=== PATIENT | female | born 1985 | race Caucasian/White ===

== ENCOUNTER → 2020-07-16 | Outpatient (CLI) | payer MEDICAID ==
[2020-07-16 15:24] LABS: HCT 35.1 % (37.2-46.3); HGB 11.3 g/dL (12.0-15.0); MCH 29.9 pg (27.0-32.0); MCHC 32.2 g/dL (32.0-37.0); MCV 92.9 fL (80.0-97.0); Mean Platelet Volume 10.3 fL (9.5-12.2); Platelet Count 290 X 10*3/uL (140-440); RBC 3.78 X 10*6/uL (4.10-5.20); RDW 13.8 % (11.5-14.5); WBC 9.47 X 10*3/uL (4.50-10.00)
[2020-07-16 16:37] LABS: HIV 2 AB Non-Reactive (Non-Reactive); HIV AB P24 Non-Reactive (Non-Reactive); HIV P24 AG Non-Reactive (Non-Reactive)
[2020-07-16 20:38] LABS: Hepatitis B Surface Antigen Non-Reactive (Non-Reactive)
== END ==
LOC: LABWHC1 09:12
PROVIDERS: ATTEND Obstetrics & Gynecology
DX: Z34.80 Encounter for supervision of other normal pregnancy, unspecified trimester (principal)
CPT/HCPCS: 36415; 85027; 86762; 86780; 86850; 86900; 86901; 87340; 87390

== ENCOUNTER → 2020-08-05 | Outpatient (CLI) | payer MEDICAID | END | disposition home or self-care (01) | LOC: LABWHC1 12:24 | PROVIDERS: ATTEND Obstetrics & Gynecology | DX: O09.90 Supervision of high risk pregnancy, unspecified, unspecified trimester (principal); Z3A.00 Weeks of gestation of pregnancy not specified | CPT/HCPCS: 36415 ==

== ENCOUNTER → 2021-03-25 | Outpatient (CLI) | payer MEDICAID ==
[2021-03-25 19:07] LABS: HCT 42.6 % (37.2-46.3); HGB 13.4 g/dL (12.0-15.0); MCH 28.6 pg (27.0-32.0); MCHC 31.5 g/dL (32.0-37.0); Mean Platelet Volume 9.9 fL (9.5-12.2); Platelet Count 355 X 10*3/uL (140-440); RBC 4.68 X 10*6/uL (4.10-5.20); RDW 12.9 % (11.5-14.5); WBC 9.78 X 10*3/uL (4.50-10.00)
[2021-03-25 22:24] LABS: African American GFR (CKD) 128.3 (60.0-200.0); Albumin 4.4 g/dL (3.8-4.9); Albumin/Globulin Ratio 1.69 (1.60-3.17); Anion Gap 14.9 mmol/L (10.00-18.00); Blood Urea Nitrogen 8.4 mg/dL (9.0-27.0); Calcium 9.1 mg/dL (8.7-10.3); Carbon Dioxide 22.1 mmol/L (20.0-27.5); Globulin 2.6 g/dL (1.6-3.3); Non-African American GFR(CKD) 110.7 (60.0-200.0); Potassium 4.1 mmol/L (3.5-5.5); Total Bilirubin 0.3 mg/dL (0.30-1.20)
== END | disposition home or self-care (01) ==
LOC: LABWHC1 14:42
PROVIDERS: ATTEND Internal Medicine Gastroenterology
DX: K50.90 Crohn's disease, unspecified, without complications (principal)
CPT/HCPCS: 36415; 80053; 85027

== ENCOUNTER 2021-07-01 08:57 | Day surgery (SDC) | payer MEDICAID ==
[2021-06-27 09:23] VITALS: BMI 21.4
[~2021-07-01 08:57] MED LIST: LACTATED RINGERS 1,000 ML IV SCH; LIDOCAINE 1% (10MG/ML) FOR IV START INTRADERMA PRN
[2021-07-01 09:59] VITALS: TEMP 98.9
[2021-07-01] MEDS ORDERED: PROPOFOL 10 MG/ML 20 ML VIAL IV ONE (10:23)
[2021-07-01] MEDS ORDERED: LIDOCAINE 1% INJ 10MG/ML (20 ML MDV) ONE (10:23)
--- NOTE | 2021-07-01 10:45 | P.PCN ---
Date of Procedure: 07/01/21 Procedure(s) Performed: BRIEF HISTORY: Patient is a 35-year-old pleasant white female scheduled for an elective colonoscopy as a part of surveillance of history of Crohn's ileitis diagnosed in 2008. She is currently maintained on Humira every 2 weeks and is in clinical remission. Last colonoscopy 2013 revealed active ileitis. PROCEDURE PERFORMED: Colonoscopy. PREOPERATIVE DIAGNOSIS: History of Crohn's ileitis. IV sedation per Anesthesia. PROCEDURE: After informed consent was obtained, the patient, was brought into the endoscopy unit. IV sedation was administered by Anesthesia under continuous monitoring. Digital rectal examination was normal. Initially the Olympus CF-160 flexible video colonoscope was then inserted in the rectum, gradually advanced into the cecum without any difficulty. Careful examination was performed as the scope was gradually being withdrawn. Ileocecal valve and the appendiceal orifice were visualized and appeared normal. Terminal ileum was intubated and 20 cm visualized and appeared normal. Prep was excellent. Mucosa of the cecum, ascending colon, transverse colon, descending colon, sigmoid colon, and rectum appeared normal. Retroflexion was performed in the rectum and no lesions were seen. The patient tolerated the procedure well. IMPRESSION: Normal-appearing colon from rectum to cecum no evidence of active colitis or colorectal neoplasia. Normal-appearing terminal ileum RECOMMENDATIONS: Findings of this examination were discussed with the patient as well as her family. She was advised to continue with Humira injections every 2 weeks. Have a repeat colonoscopy in 5 years..
[2021-07-01 11:07] VITALS: BP 110/73; PULSE 66; RESP 16
== END 2021-07-01 11:28 | disposition home or self-care (01) ==
LOC: ORWHC2ENDO 08:57
PROVIDERS: ATTEND Internal Medicine Gastroenterology
DX: K50.00 Crohn's disease of small intestine without complications (principal); Z79.899 Other long term (current) drug therapy
CPT/HCPCS: 81025; 45378; J2001; J2704